=== PATIENT | male | born 1975 | race Caucasian/White ===

== ENCOUNTER → 2022-11-13 15:29 | Outpatient (CLI) | payer BC, SELFPAY ==
[2022-11-13 16:21] LABS: COVID19 -Nasal RAPID Negative (Negative)
== END ==
PROVIDERS: Visit Provider Surgery
DX: Z01.812 Encounter for preprocedural laboratory examination (principal); Z20.822 Contact with and (suspected) exposure to COVID-19
CPT/HCPCS: 87635; C9803

== ENCOUNTER 2022-11-14 07:49 | Day surgery (SDC) | payer BC, SELFPAY ==
--- NOTE | 2022-11-14 | PATH_ITS ---
[facility] Accession Number: [id number] No. of containers..01 Tissue . 01 Material submitted: . colon - CECAL POLYP . 01 Diagnosis: Cecum, Polyps, Biopsies: Tubular adenomas. MRV 11/20/2022 1150 Local . 01 Electronically signed: . Neyda Gray MD, Pathologist NPI- [id number] . 01 Gross description: . CECAL POLYP: Received in formalin are multiple fragment(s) of gleason, soft tissue measuring 1.5 x 0.7 x 0.1 cm in aggregate submitted entirely in 1 cassette(s) /CPE 11/15/2022 0846 Local . 01 Pathologist provided ICD-10: D12.0 . 01 CPT . 811473 Performed at: 01 [facility] [address] [place] [address], [place], [place] [id number] MD Frederick Martinez MD Phone: [phone]
[2022-11-14 08:45] VITALS: BP 139/81; PULSE 90; RESP 16; TEMP 36.3; O2SAT 98; BMI 30.5
[2022-11-14] MEDS: LACTATED RINGERS 1,000 ML 84 ML IV (09:03)
--- NOTE | 2022-11-14 09:19 | PM.HP.1 ---
History of Present Illness History of Present Illness Date Patient Seen: 11/14/22 Time Patient Seen: 09:19 Chief complaint: SDC Narrative: Madhu is a 47-year-old man who is here for colonoscopy. He has never had 1 before. He has no known family history of colon cancer. Both his parents have had polyps removed on colonoscopies before. Patient History Family & Social History Social History: household members spouse Tobacco & Substance use: Smoking Status Never smoker alcohol intake current alcohol intake frequency a few times a week Substance Use Type does not use Meds Home Medications and Allergies Home Medications Medication Instructions Recorded Confirmed Type sodium sul 1.479 gram-potas ch See Rx Instructions PO PER PKG DIR 11/06/22 11/14/22 Rx 0.188 gram-magnes sul 0.225 gram #24 tabs tablet (Sutab) testosterone cypionate 200 mg/mL 100 mg IM 11/14/22 History intramuscular oil (Depo-Testosterone) Allergies Allergy/AdvReac Type Severity Reaction Status Date / Time No Known Drug Allergies Allergy Verified 11/14/22 08:44 Exam Vital Signs (past 8 hours): - 11/14/22 08:45 Temperature 97.4 F L Pulse Rate 90 Respiratory Rate 16 Blood Pressure 139/81 Pulse Oximetry 98 Oxygen Delivery Method Room Air Oxygen Delivery Method Room Air Const General: No acute distress Resp Effort & Inspection: normal respiratory effort Assessment & Plan Assessment and plan (1) Colon cancer screening: Status: Acute Plan Risks and benefits of colonoscopy reviewed and he would like to proceed. Time Spent With Patient Critical Care time: I spent a total of [] minutes of critical care time on this patient's care today; this time is exclusive of procedural time.
[2022-11-14 10:31] VITALS: BP 101/62; PULSE 98; RESP 20; TEMP 36.3; O2SAT 90
--- NOTE | 2022-11-14 10:31 | PM.OP.COLON ---
Operative Date/Time/Diagnoses Date of procedure: 11/14/22 Time of procedure: 10:31 Pre-op diagnosis: Colon cancer screening Post-op diagnosis: same Procedure & Clinicians Study performed: Colonoscopy Same procedure as scheduled: Yes Surgeon: Osman Garcia Procedure Notes Procedure in detail: Surgeon: Osman Garcia MD Anesthesia: Dr. Cerda Procedure: The patient was brought to the endoscopy suite, placed in left lateral decubitus position. The patient was connected to monitoring devices. A time-out was performed. Sedation was administered. Once the patient was adequately sedated, a digital rectal exam was performed and was normal. The scope was then inserted and advanced to the cecum where the appendiceal orifice was identified and photographed. The scope was then slowly withdrawn over greater than 6 minutes. The mucosa was thoroughly inspected. There were 2 polyps in the cecum. One was approximately 1 cm and was removed with 2 passes of the cold snare. There was also a 5 mm polyp in the cecum removed with cold snare. The scope was retroflexed in the rectum. No other abnormalities were seen. The scope was straightened and removed. The patient was awakened and brought to recovery. Scope withdrawal time: 14 minutes Sedation time: 22 minutes EBL: 5 mL Findings: 1 cm polyp in the cecum and 5 mm polyp in the cecum Post-procedure Disposition: PACU
[2022-11-14 10:36] VITALS: BP 124/57; PULSE 90; RESP 18; O2SAT 96
[2022-11-14 10:41] VITALS: BP 113/62; PULSE 94; RESP 14; TEMP 36.4; O2SAT 97
[2022-11-14 10:53] VITALS: BP 128/65; PULSE 91; RESP 16; O2SAT 96
== END 2022-11-14 11:10 | disposition home or self-care (01) ==
PROVIDERS: Referring Provider Surgery; Visit Provider Surgery
PROC: 0DJD8ZZ Inspection of Lower Intestinal Tract, Via Natural or Artificial Opening Endoscopic (ICD-10-PCS; CPT 45378; principal; 2022-11-14 09:15)
DX: Z12.11 Encounter for screening for malignant neoplasm of colon (principal); D12.0 Benign neoplasm of cecum
CPT/HCPCS: 45380; J2250; J2704; J3010

== ENCOUNTER → 2023-01-13 15:39 | Outpatient (CLI) | payer OTHER, SELFPAY ==
--- NOTE | 2023-01-13 15:42 | DI.RAD.S_ITS ---
PROCEDURE: XR KNEE RT 3V INDICATIONS: right knee strain TECHNIQUE: 3 views of the knee were acquired. COMPARISON: None. FINDINGS: Bones: No fractures or dislocations. No suspicious bony lesions. Soft tissues: Small joint effusion. No suspicious soft tissue calcifications. IMPRESSION: Small knee joint effusion; otherwise no definite radiographic abnormality. If pain persists with conservative management, consider cross sectional imaging such as CT or MRI for further assessment. Dictated by: Andriy Meza RR Interpreted: Yamil Aguilera MD on 01/13/2023 at 16:02 Transcribed by: ADAM on 01/13/2023 at 16:02 Approved by: Zachery Aguilera M.D. on 01/13/2023 at 16:51
== END ==
PROVIDERS: Referring Provider Nurse Practitioner Family; Visit Provider Nurse Practitioner Family
DX: M25.461 Effusion, right knee (principal); S86.911A Strain of unspecified muscle(s) and tendon(s) at lower leg level, right leg, initial encounter
CPT/HCPCS: 73562

== ENCOUNTER → 2023-02-17 12:12 | Outpatient (CLI) | payer OTHER, SELFPAY ==
--- NOTE | 2023-02-17 | DI.MRI.S_ITS ---
PROCEDURE: MR KNEE RT WO CON INDICATIONS: strain of right knee TECHNIQUE: Noncontrast sagittal PD fast spin echo and T2 fast spin echo with fat saturation, sagittal 3-D FLASH with fat saturation; coronal T1 spin echo and PD fast spin echo with fat saturation, and axial PD fast spin echo with fat saturation through the knee. COMPARISON: None. FINDINGS: Image quality: Excellent. Menisci: Oblique tear involving posterior horn of medial meniscus is seen extending to inferior articulating surface. There is no lateral meniscal tear. The meniscal root ligaments appear intact. Lobulated cystic structure is seen posterior to the posterior cruciate ligament and may represent Lucy meniscal cyst. Cruciate ligaments: The anterior and posterior cruciate ligaments appear intact. Medial structures: The medial collateral ligament appears intact. The posterior oblique ligament, semimembranosus tendon insertions, oblique popliteal ligament, and meniscocapsular junction appear intact. Visualized portions of the pes anserinus tendons appear normal. No abnormal bursal fluid. Lateral structures: The lateral collateral ligament, long and short heads of the biceps femoris tendon appear intact. The popliteus tendon appears normal; the popliteofibular ligament appears intact. Iliotibial band appears normal. Anterior structures: The quadriceps and patellar tendons appear intact. Patellar alignment is normal. No femoral trochlear dysplasia or ventral trochlear prominence. No edema in the infrapatellar fat pad. Bones and cartilage: No bone marrow contusions or fractures. Mild medial femoral tibial compartment joint space narrowing and low-grade chondromalacia is seen. Joint space: There is physiologic knee joint fluid. No Muniz's cyst. Normal appearing synovial plicae are incidentally noted. IMPRESSION: 1. Oblique tear involving body/posterior horn of medial meniscus extending to inferior articulating surface with suggestion of lobulated parameniscal cyst adjacent to posterior medial malleolus/posterior cruciate ligament. No evidence of focal lateral meniscal tear. 2. Cruciate ligaments are intact. 3. 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 No fracture or dislocation. No significant joint effusion. Dictated by: Trevor Snow M.D. on 02/17/2023 at 13:25 Approved by: Trevor Snow M.D. on 02/17/2023 at 13:36
== END ==
PROVIDERS: Family Provider Family Medicine; PCP Family Medicine; Referring Provider Orthopaedic Surgery; Visit Provider Orthopaedic Surgery
DX: S83.241A Other tear of medial meniscus, current injury, right knee, initial encounter (principal); S86.911A Strain of unspecified muscle(s) and tendon(s) at lower leg level, right leg, initial encounter; M17.11 Unilateral primary osteoarthritis, right knee; M94.261 Chondromalacia, right knee; X58.XXXA Exposure to other specified factors, initial encounter
CPT/HCPCS: 73721

== ENCOUNTER 2023-04-07 15:45 | Outpatient (RCR) | payer BC, SELFPAY ==
--- NOTE | 2023-01-27 17:28 | PT.OIE ---
Current Diagnoses Pain in right knee (01/27/23) Strain of unspecified muscle(s) and tendon(s) at lower leg level, right leg, initial encounter (01/27/23) Strain of unspecified muscle(s) and tendon(s) at lower leg level, right leg, subsequent encounter (01/27/23) Visit Care Team Role Provider Type Kishor Hunter MD Family Provider Non-Staff Primary Care Provider Specialty: Family Practice Address: [address] [place] [address] [address], [place], [address] Email: DICKSON Mixon Attending Provider Advanced Security Patrol Driver Referring Provider Specialty: [facility] Practice Address: [address] [facility], [facility] [place], [address] Phone: Fax: Email: [email or web address] Initial Evaluation PT-OP-A Visit Information Start: 01/27/23 10:30 Freq: Status: Active Protocol: Document 01/27/23 09:45 DCW (Rec: 01/27/23 17:27 [facility] [id number]) Out-Patient Physical Therapy Visit Information Visit Information Visit Type Initial Evaluation Visit Start Time 09:45 Visit Stop Time 10:30 Total Visit Minutes 45 Visit Number 1 Number of APPRISE COUNSELOR Visits 0 Evaluation Information Evaluation Date 01/27/23 PT-OP-B Current Condition Start: 01/27/23 10:30 Freq: Status: Active Protocol: Document 01/27/23 09:45 DCW (Rec: 01/27/23 17:27 [facility] [id number]) Current Condition History of Current Condition Onset Date 01/03/23 Current Complaints R knee pain History of Current Condition Pt is a 47 year old male presenting with a 3+ week history of right knee pain. Pt reports he was out jogging in an attempt to get ready for a work-related fitness test, when he stepped off a curb, rolled his ankle, and felt a twisting/grinding in his right knee. Notes that he has a prior meniscus tear and surgical repair in his left knee in 2012, and this GARY was a lot like his last one, so he has been concerned about his meniscus. Pt notes very point-specific pain at the Pes Anserine. Has not been lifting weights or running, trying to rest, ice, and elevate to decrease swelling. Notes his knee still aches pretty frequently, especially when up walking for extended periods of time. Does have an appointment with an Ortho scheduled for tomorrow, pt is hoping that he gets an MRI from the Ortho. Prior Treatments and Tests 2012 - Left meniscus tear, partial menisectomy. Treatment Goals Patient/Caregiver Goals Return to work, ability to complete running portion of fitness test (1.5 miles). PT-OP-C Subjective Start: 01/27/23 10:30 Freq: Status: Active Protocol: Document 01/27/23 09:45 DCW (Rec: 01/27/23 17:27 DCW [id number]) OP-PT Subjective Patient Comments Patient Comments I was told when they did my left knee that I'd need a replacement eventually. I'm hoping to put it off until I retire, which should be next year. Patient Reported Progress Improving Patient Questionnaires Lower Extremity Functional Scale LEFS Score 72.5% LEFS Impairment 20 to 39% Impaired (Score 48- 62) PT-OP-F Manual Assessment Start: 01/27/23 10:30 Freq: Status: Active Protocol: Document 01/27/23 09:45 DCW (Rec: 01/27/23 17:27 DCW [id number]) Manual Assessments Other Manual Assessments Other Manual Assessments Point-specific pain; tenderness to palpation 3/4: wincing and withdraw at R Pes Anserine. Tenderness to palpation 1/4: Complaint of pain at R MCL PT-OP-K Range of Motion Start: 01/27/23 10:30 Freq: Status: Active Protocol: Document 01/27/23 09:45 DCW (Rec: 01/27/23 17:27 DCW [id number]) Knee Goniometric Range of Motion Knee Right Knee ROM WFL Yes Patient Position Supine Flexion Active (degrees) 130 Extension Active (degrees) 0 PT-OP-L Special Tests Start: 01/27/23 10:30 Freq: Status: Active Protocol: Document 01/27/23 09:45 DCW (Rec: 01/27/23 17:27 DCW [id number]) Special Tests Knee Special Tests Varus- 0 Degrees Test Results Pain at R Pes Anserine Valgus- 0 Degrees Test Results Negative Posterior Draw Test Results Negative Patella Tap Test Results Positive R Jeannette Test Test Results Pain at R Pes Anserine Apley's Compression Test Results Negative Anterior Draw Test Results Negative PT-OP-M Strength Start: 01/27/23 10:30 Freq: Status: Active Protocol: Document 01/27/23 09:45 DCW (Rec: 01/27/23 17:27 DCW [id number]) Knee Strength Knee Manual Muscle Testing Right Flexion (S2) 5 Normal Extension (L3) 4 Good Left Flexion (S2) 5 Normal Extension (L3) 5 Normal PT-OP-T Assessment and Plan Start: 01/27/23 10:30 Freq: Status: Active Protocol: Document 01/27/23 09:45 DCW (Rec: 01/27/23 17:27 DCW [id number]) Physical Therapy Assessment Rehab Potential Rehabilitation Potential Good Evaluation Complexity Number of Personal Factors/Comorbidities 1-2 Number of Body Systems Impaired 1-2 Clinical Presentation at Evaluation Stable Impairments Impairments Activity Tolerance,Functional Activities,Functional Mobility ,Pain,ROM,Soft Tissue Mobility ,Tone Goals Two Impairment Pt unable to currently run due to increased right knee pain Skilled Nursing Goal (LTG) Pt to demonstrate ability to jog at least 1.5 miles, in order to pass in work fitness test. LTG Duration 03/29/23 One Impairment Pt does not have an appropriate home exercise program Short Term Goal (STG) Pt to be independent and compliant with an appropriate HEP STG Duration 02/26/23 Assessment Summary Assessment Pt presents with signs and symptoms consistent with potential Pes Anserine tendonitis. Pt is very point- specific, likely initially caused be a sharp twist of his knee when his rolled his ankle, and has since just become more inflamed. Pt is already doing a lot to help with decreasing swelling and inflammation, but struggling with return to normal exercise . Pt has an upcoming fitness test for work, during which he must run 1.5 miles, and is anxious to get back to training so he can complete this test. Pt should benefit from skilled therapy focusing on STM, decreasing inflammation, joint mobility, strengthening, and pain control. Physical Therapy Plan Frequency and Duration Frequency of Treatment 2x/Week Plan of Care Start Date 01/27/23 Plan of Care End Date 03/29/23 Therapeutic Interventions Therapeutic Interventions Home Exercise Program,Joint Mobilizations,Manual Therapy, Neuromuscular Re-education, Patient/Caregiver Education, Self-Care/Home Management,Soft Tissue Mobilization, Therapeutic Activities, Therapeutic Exercises Modalities Infrared Therapy,Ultrasound Next Visit Focus/Plan Next Note Type Treatment Note Next Visit Plan STM, stretching, k-tape/ modalities for pain and inflammation, strengthening
--- NOTE | 2023-01-27 17:28 | PT.OPPOC ---
Physical, Occupational & Speech Therapy At [facility] Current Diagnoses Pain in right knee (01/27/23) Strain of unspecified muscle(s) and tendon(s) at lower leg level, right leg, initial encounter (01/27/23) Strain of unspecified muscle(s) and tendon(s) at lower leg level, right leg, subsequent encounter (01/27/23) Visit Care Team Role Provider Type Kishor Hunter MD Family Provider Non-Staff Primary Care Provider Specialty: Family Practice Address: [address] [place] [address] [address], [address] Email: DICKSON Mixon Attending Provider Advanced Electric Switch Tester Referring Provider Specialty: Family Practice Address: [facility], [facility], [place], [address] Phone: Fax: Email: [email or web address] Plan Of Care PT-OP-T Assessment and Plan Start: 01/27/23 10:30 Freq: Status: Active Protocol: Document 01/27/23 09:45 DCW (Rec: 01/27/23 17:27 DCW [id number]) Physical Therapy Assessment Rehab Potential Rehabilitation Potential Good Evaluation Complexity Number of Personal Factors/Comorbidities 1-2 Number of Body Systems Impaired 1-2 Clinical Presentation at Evaluation Stable Impairments Impairments Activity Tolerance,Functional Activities,Functional Mobility ,Pain,ROM,Soft Tissue Mobility ,Tone Goals Two Impairment Pt unable to currently run due to increased right knee pain Detention Goal (LTG) Pt to demonstrate ability to jog at least 1.5 miles, in order to pass in work fitness test. LTG Duration 03/29/23 One Impairment Pt does not have an appropriate home exercise program Short Term Goal (STG) Pt to be independent and compliant with an appropriate HEP STG Duration 02/26/23 Assessment Summary Assessment Pt presents with signs and symptoms consistent with potential Pes Anserine tendonitis. Pt is very point- specific, likely initially caused be a sharp twist of his knee when his rolled his ankle, and has since just become more inflamed. Pt is already doing a lot to help with decreasing swelling and inflammation, but struggling with return to normal exercise . Pt has an upcoming fitness test for work, during which he must run 1.5 miles, and is anxious to get back to training so he can complete this test. Pt should benefit from skilled therapy focusing on STM, decreasing inflammation, joint mobility, strengthening, and pain control. Physical Therapy Plan Frequency and Duration Frequency of Treatment 2x/Week Plan of Care Start Date 01/27/23 Plan of Care End Date 03/29/23 Therapeutic Interventions Therapeutic Interventions Home Exercise Program,Joint Mobilizations,Manual Therapy, Neuromuscular Re-education, Patient/Caregiver Education, Self-Care/Home Management,Soft Tissue Mobilization, Therapeutic Activities, Therapeutic Exercises Modalities Infrared Therapy,Ultrasound Next Visit Focus/Plan Next Note Type Treatment Note Next Visit Plan STM, stretching, k-tape/ modalities for pain and inflammation, strengthening Plan of Care Dates Plan of Care Start Date 01/27/23 Plan of Care End Date 03/29/23 Electronically Signed by: Sukhjinder Lemus, PT 01/27/23 0170 If you are in agreement with this Plan of Care, please return a signed and dated copy. I have reviewed this Plan of Care and certify that the skilled therapy services above are required to meet the patient?s needs. Physician Signature Date Printed Name and Credentials Clinical Instructor Signature Printed Name and Credentials
--- NOTE | 2023-02-21 15:37 | PT-OP ANOTE ---
Pt arrived as scheduled, but following brief discussion, would prefer to wait until he is seen by Ortho on 03/03/23 for review of his MRI prior to working with PT.
--- NOTE | 2023-03-07 16:49 | PT.OTN ---
Current Diagnoses Pain in right knee (03/07/23) Strain of unspecified muscle(s) and tendon(s) at lower leg level, right leg, initial encounter (03/07/23) Strain of unspecified muscle(s) and tendon(s) at lower leg level, right leg, subsequent encounter (03/07/23) Physical Therapy Treatment Note PT-OP-A Visit Information Start: 01/27/23 10:30 Freq: Status: Active Protocol: Document 03/07/23 16:00 DCW (Rec: 03/07/23 16:48 DCW [id number]) Out-Patient Physical Therapy Visit Information Visit Information Visit Type Treatment Note Visit Start Time 16:00 Visit Stop Time 16:45 Total Visit Minutes 45 Visit Number 2 Number of CASH ACCOUNTING CLERK Visits 0 Evaluation Information Evaluation Date 01/27/23 PT-OP-B Current Condition Start: 01/27/23 10:30 Freq: Status: Active Protocol: Document 01/27/23 09:45 DCW (Rec: 01/27/23 17:27 DCW [id number]) Current Condition History of Current Condition Onset Date 01/03/23 Current Complaints R knee pain History of Current Condition Pt is a 47 year old male presenting with a 3+ week history of right knee pain. Pt reports he was out jogging in an attempt to get ready for a work-related fitness test, when he stepped off a curb, rolled his ankle, and felt a twisting/grinding in his right knee. Notes that he has a prior meniscus tear and surgical repair in his left knee in 2012, and this GARY was a lot like his last one, so he has been concerned about his meniscus. Pt notes very point-specific pain at the Pes Anserine. Has not been lifting weights or running, trying to rest, ice, and elevate to decrease swelling. Notes his knee still aches pretty frequently, especially when up walking for extended periods of time. Does have an appointment with an Ortho scheduled for tomorrow, pt is hoping that he gets an MRI from the Ortho. Prior Treatments and Tests 2012 - Left meniscus tear, partial menisectomy. Treatment Goals Patient/Caregiver Goals Return to work, ability to complete running portion of fitness test (1.5 miles). PT-OP-C Subjective Start: 01/27/23 10:30 Freq: Status: Active Protocol: Document 03/07/23 16:00 DCW (Rec: 03/07/23 16:48 DCW [id number]) OP-PT Subjective Patient Comments Patient Comments Pt reports he has seen ortho, recommended 6 weeks of PT for now. PT-OP-F Manual Assessment Start: 01/27/23 10:30 Freq: Status: Active Protocol: Document 01/27/23 09:45 DCW (Rec: 01/27/23 17:27 DCW [id number]) Manual Assessments Other Manual Assessments Other Manual Assessments Point-specific pain; tenderness to palpation 3/4: wincing and withdraw at R Pes Anserine. Tenderness to palpation 1/4: Complaint of pain at R MCL PT-OP-K Range of Motion Start: 01/27/23 10:30 Freq: Status: Active Protocol: Document 01/27/23 09:45 DCW (Rec: 01/27/23 17:27 DCW [id number]) Knee Goniometric Range of Motion Knee Right Knee ROM WFL Yes Patient Position Supine Flexion Active (degrees) 130 Extension Active (degrees) 0 PT-OP-L Special Tests Start: 01/27/23 10:30 Freq: Status: Active Protocol: Document 01/27/23 09:45 DCW (Rec: 01/27/23 17:27 DCW [id number]) Special Tests Knee Special Tests Varus- 0 Degrees Test Results Pain at R Pes Anserine Valgus- 0 Degrees Test Results Negative Posterior Draw Test Results Negative Patella Tap Test Results Positive R Jeannette Test Test Results Pain at R Pes Anserine Apley's Compression Test Results Negative Anterior Draw Test Results Negative PT-OP-M Strength Start: 01/27/23 10:30 Freq: Status: Active Protocol: Document 01/27/23 09:45 DCW (Rec: 01/27/23 17:27 DCW [id number]) Knee Strength Knee Manual Muscle Testing Right Flexion (S2) 5 Normal Extension (L3) 4 Good Left Flexion (S2) 5 Normal Extension (L3) 5 Normal PT-OP-Q Treatments Start: 01/27/23 10:30 Freq: Status: Active Protocol: Document 03/07/23 16:00 DCW (Rec: 03/07/23 16:48 DCW [id number]) Gym Equipment Shuttle Recovery Plyometric hopping Resistance 62# Unilateral Squats Resistance 87# Shuttle Balance Red Comments WBOS Staggered (Stabilization, Weight shift) Lateral weight Shift Therapeutic Ball Bridging Exercise Details Bridging /c HS curl Ball Size/Color Red - 55 cm Sport Cord Squat Exercise Details Squat with 4-way SC pull Cord/Resistance Blue Therapeutic Exercises Standing Exercises Step-ups Standing Exercise Name Step-ups Side bilateral Equipment Used 16 step Other Exercises Resisted Ambulation Other Exercise Name Side-stepping, Forward/ Backward Resistance Blue loop BOSU Lunge Other Exercise Name BOSU Lunge Side bilateral PT-OP-T Assessment and Plan Start: 01/27/23 10:30 Freq: Status: Active Protocol: Document 03/07/23 16:00 DCW (Rec: 03/07/23 16:48 DCW [id number]) Physical Therapy Assessment Impairments Impairments Activity Tolerance,Functional Activities,Functional Mobility ,Pain,ROM,Soft Tissue Mobility ,Tone Goals Two Impairment Pt unable to currently run due to increased right knee pain Nursing Home Goal (LTG) Pt to demonstrate ability to jog at least 1.5 miles, in order to pass in work fitness test. LTG Duration 03/29/23 One Impairment Pt does not have an appropriate home exercise program Short Term Goal (STG) Pt to be independent and compliant with an appropriate HEP STG Duration 02/26/23 Assessment Summary Assessment Pt did very well with new challenges, was able to participate in difficult activities with minimal knee pain. Pt noted that his left leg felt even more problematic than his right when doing most stabilization and balance activities. Should benefit from continued PT focusing on improved strength and stabilization. Physical Therapy Plan Frequency and Duration Frequency of Treatment 2x/Week Plan of Care Start Date 01/27/23 Plan of Care End Date 03/29/23 Therapeutic Interventions Therapeutic Interventions Home Exercise Program,Joint Mobilizations,Manual Therapy, Neuromuscular Re-education, Patient/Caregiver Education, Self-Care/Home Management,Soft Tissue Mobilization, Therapeutic Activities, Therapeutic Exercises Modalities Infrared Therapy,Ultrasound Next Visit Focus/Plan Next Note Type Treatment Note Next Visit Plan STM, stretching, k-tape/ modalities for pain and inflammation, strengthening
--- NOTE | 2023-03-14 16:49 | PT.OTN ---
Current Diagnoses Pain in right knee (03/14/23) Strain of unspecified muscle(s) and tendon(s) at lower leg level, right leg, initial encounter (03/14/23) Strain of unspecified muscle(s) and tendon(s) at lower leg level, right leg, subsequent encounter (03/14/23) Physical Therapy Treatment Note PT-OP-A Visit Information Start: 01/27/23 10:30 Freq: Status: Active Protocol: Document 03/14/23 16:00 DCW (Rec: 03/14/23 16:49 DCW [id number]) Out-Patient Physical Therapy Visit Information Visit Information Visit Type Treatment Note Visit Start Time 16:00 Visit Stop Time 16:45 Total Visit Minutes 45 Visit Number 3 Number of HOTEL OR MOTEL CLEANING SUPERVISOR Visits 0 Evaluation Information Evaluation Date 01/27/23 PT-OP-B Current Condition Start: 01/27/23 10:30 Freq: Status: Active Protocol: Document 01/27/23 09:45 DCW (Rec: 01/27/23 17:27 DCW [id number]) Current Condition History of Current Condition Onset Date 01/03/23 Current Complaints R knee pain History of Current Condition Pt is a 47 year old male presenting with a 3+ week history of right knee pain. Pt reports he was out jogging in an attempt to get ready for a work-related fitness test, when he stepped off a curb, rolled his ankle, and felt a twisting/grinding in his right knee. Notes that he has a prior meniscus tear and surgical repair in his left knee in 2012, and this GARY was a lot like his last one, so he has been concerned about his meniscus. Pt notes very point-specific pain at the Pes Anserine. Has not been lifting weights or running, trying to rest, ice, and elevate to decrease swelling. Notes his knee still aches pretty frequently, especially when up walking for extended periods of time. Does have an appointment with an Ortho scheduled for tomorrow, pt is hoping that he gets an MRI from the Ortho. Prior Treatments and Tests 2012 - Left meniscus tear, partial menisectomy. Treatment Goals Patient/Caregiver Goals Return to work, ability to complete running portion of fitness test (1.5 miles). PT-OP-C Subjective Start: 01/27/23 10:30 Freq: Status: Active Protocol: Document 03/14/23 16:00 DCW (Rec: 03/14/23 16:49 DCW [id number]) OP-PT Subjective Patient Comments Patient Comments Pt reports his knee has been pretty sore ever since his last PT appointment, more of a lingering discomfort than actual pain. PT-OP-F Manual Assessment Start: 01/27/23 10:30 Freq: Status: Active Protocol: Document 01/27/23 09:45 DCW (Rec: 01/27/23 17:27 DCW [id number]) Manual Assessments Other Manual Assessments Other Manual Assessments Point-specific pain; tenderness to palpation 3/4: wincing and withdraw at R Pes Anserine. Tenderness to palpation 1/4: Complaint of pain at R MCL PT-OP-K Range of Motion Start: 01/27/23 10:30 Freq: Status: Active Protocol: Document 01/27/23 09:45 DCW (Rec: 01/27/23 17:27 DCW [id number]) Knee Goniometric Range of Motion Knee Right Knee ROM WFL Yes Patient Position Supine Flexion Active (degrees) 130 Extension Active (degrees) 0 PT-OP-L Special Tests Start: 01/27/23 10:30 Freq: Status: Active Protocol: Document 01/27/23 09:45 DCW (Rec: 01/27/23 17:27 DCW [id number]) Special Tests Knee Special Tests Varus- 0 Degrees Test Results Pain at R Pes Anserine Valgus- 0 Degrees Test Results Negative Posterior Draw Test Results Negative Patella Tap Test Results Positive R Jeannette Test Test Results Pain at R Pes Anserine Apley's Compression Test Results Negative Anterior Draw Test Results Negative PT-OP-M Strength Start: 01/27/23 10:30 Freq: Status: Active Protocol: Document 01/27/23 09:45 DCW (Rec: 01/27/23 17:27 DCW [id number]) Knee Strength Knee Manual Muscle Testing Right Flexion (S2) 5 Normal Extension (L3) 4 Good Left Flexion (S2) 5 Normal Extension (L3) 5 Normal PT-OP-Q Treatments Start: 01/27/23 10:30 Freq: Status: Active Protocol: Document 03/14/23 16:00 DCW (Rec: 03/14/23 16:49 DCW [id number]) Cardio Equipment Other Cardio Equipment Other Cardio Equipment Fitter: Middle and Thickes band VCs to keep body weight over outside knee Gym Equipment Shuttle Balance Red Comments WBOS Staggered (Stabilization, Weight shift) Lateral weight Shift (stopped d/t pain) Therapeutic Exercises Standing Exercises TKE Standing Exercise Name TKE Side bilateral Resistance Blue Step-ups Standing Exercise Name Step-ups/Downs Side bilateral Equipment Used 6 step Other Exercises BOSU stance Other Exercise Name BOSU single leg stance Side bilateral BOSU Lunge Other Exercise Name BOSU Lunge Side bilateral Manual Therapy Treatment Taping Right knee Body Location 2 Y-strips sup<->inf patella Type of Tape Kinesio Tape PT-OP-T Assessment and Plan Start: 01/27/23 10:30 Freq: Status: Active Protocol: Document 03/14/23 16:00 DCW (Rec: 03/14/23 16:49 DCW [id number]) Physical Therapy Assessment Impairments Impairments Activity Tolerance,Functional Activities,Functional Mobility ,Pain,ROM,Soft Tissue Mobility ,Tone Goals Two Impairment Pt unable to currently run due to increased right knee pain Ear Muff Assembler Goal (LTG) Pt to demonstrate ability to jog at least 1.5 miles, in order to pass in work fitness test. LTG Duration 03/29/23 One Impairment Pt does not have an appropriate home exercise program Short Term Goal (STG) Pt to be independent and compliant with an appropriate HEP STG Duration 02/26/23 Assessment Summary Assessment Attempted to take it easier today after pt had sustained soreness following last treatment session, admitted his knees were angry after today's session, but felt like it was a good workout. Physical Therapy Plan Frequency and Duration Frequency of Treatment 2x/Week Plan of Care Start Date 01/27/23 Plan of Care End Date 03/29/23 Therapeutic Interventions Therapeutic Interventions Home Exercise Program,Joint Mobilizations,Manual Therapy, Neuromuscular Re-education, Patient/Caregiver Education, Self-Care/Home Management,Soft Tissue Mobilization, Therapeutic Activities, Therapeutic Exercises Modalities Infrared Therapy,Ultrasound Next Visit Focus/Plan Next Note Type Treatment Note Next Visit Plan STM, stretching, k-tape/ modalities for pain and inflammation, strengthening
--- NOTE | 2023-03-18 16:32 | PT.OTN ---
Current Diagnoses Pain in right knee (03/18/23) Strain of unspecified muscle(s) and tendon(s) at lower leg level, right leg, initial encounter (03/18/23) Strain of unspecified muscle(s) and tendon(s) at lower leg level, right leg, subsequent encounter (03/18/23) Physical Therapy Treatment Note PT-OP-A Visit Information Start: 01/27/23 10:30 Freq: Status: Active Protocol: Document 03/18/23 15:50 DCW (Rec: 03/18/23 16:32 DCW [id number]) Out-Patient Physical Therapy Visit Information Visit Information Visit Type Treatment Note Visit Start Time 15:50 Visit Stop Time 16:30 Total Visit Minutes 40 Visit Number 4 Number of SCHOOL CHILD CARE ATTENDANT Visits 0 Evaluation Information Evaluation Date 01/27/23 PT-OP-B Current Condition Start: 01/27/23 10:30 Freq: Status: Active Protocol: Document 01/27/23 09:45 DCW (Rec: 01/27/23 17:27 DCW [id number]) Current Condition History of Current Condition Onset Date 01/03/23 Current Complaints R knee pain History of Current Condition Pt is a 47 year old male presenting with a 3+ week history of right knee pain. Pt reports he was out jogging in an attempt to get ready for a work-related fitness test, when he stepped off a curb, rolled his ankle, and felt a twisting/grinding in his right knee. Notes that he has a prior meniscus tear and surgical repair in his left knee in 2012, and this GARY was a lot like his last one, so he has been concerned about his meniscus. Pt notes very point-specific pain at the Pes Anserine. Has not been lifting weights or running, trying to rest, ice, and elevate to decrease swelling. Notes his knee still aches pretty frequently, especially when up walking for extended periods of time. Does have an appointment with an Ortho scheduled for tomorrow, pt is hoping that he gets an MRI from the Ortho. Prior Treatments and Tests 2012 - Left meniscus tear, partial menisectomy. Treatment Goals Patient/Caregiver Goals Return to work, ability to complete running portion of fitness test (1.5 miles). PT-OP-C Subjective Start: 01/27/23 10:30 Freq: Status: Active Protocol: Document 03/18/23 15:50 DCW (Rec: 03/18/23 16:32 DCW [id number]) OP-PT Subjective Patient Comments Patient Comments I made the mistake of letting my kids talk me into going on a trail walk, and I'm a little sore still from that. PT-OP-F Manual Assessment Start: 01/27/23 10:30 Freq: Status: Active Protocol: Document 01/27/23 09:45 DCW (Rec: 01/27/23 17:27 DCW [id number]) Manual Assessments Other Manual Assessments Other Manual Assessments Point-specific pain; tenderness to palpation 3/4: wincing and withdraw at R Pes Anserine. Tenderness to palpation 1/4: Complaint of pain at R MCL PT-OP-K Range of Motion Start: 01/27/23 10:30 Freq: Status: Active Protocol: Document 01/27/23 09:45 DCW (Rec: 01/27/23 17:27 DCW [id number]) Knee Goniometric Range of Motion Knee Right Knee ROM WFL Yes Patient Position Supine Flexion Active (degrees) 130 Extension Active (degrees) 0 PT-OP-L Special Tests Start: 01/27/23 10:30 Freq: Status: Active Protocol: Document 01/27/23 09:45 DCW (Rec: 01/27/23 17:27 DCW [id number]) Special Tests Knee Special Tests Varus- 0 Degrees Test Results Pain at R Pes Anserine Valgus- 0 Degrees Test Results Negative Posterior Draw Test Results Negative Patella Tap Test Results Positive R Jeannette Test Test Results Pain at R Pes Anserine Apley's Compression Test Results Negative Anterior Draw Test Results Negative PT-OP-M Strength Start: 01/27/23 10:30 Freq: Status: Active Protocol: Document 01/27/23 09:45 DCW (Rec: 01/27/23 17:27 DCW [id number]) Knee Strength Knee Manual Muscle Testing Right Flexion (S2) 5 Normal Extension (L3) 4 Good Left Flexion (S2) 5 Normal Extension (L3) 5 Normal PT-OP-Q Treatments Start: 01/27/23 10:30 Freq: Status: Active Protocol: Document 03/18/23 15:50 DCW (Rec: 03/18/23 16:32 DCW [id number]) Gym Equipment Shuttle Balance Red Comments WBOS Staggered (Stabilization, Weight shift) Lateral weight Shift (stopped d/t pain) Therapeutic Exercises Standing Exercises Step-ups Standing Exercise Name Step-ups/Downs Side bilateral Equipment Used 6 step Other Exercises SLS Other Exercise Name SLS on Foam, Balloon volleyball Side bilateral Star Stepping Other Exercise Name Star stepping Side bilateral BOSU stance Other Exercise Name BOSU single leg stance Side bilateral BOSU Lunge Other Exercise Name BOSU Lunge Side bilateral PT-OP-T Assessment and Plan Start: 01/27/23 10:30 Freq: Status: Active Protocol: Document 03/18/23 15:50 DCW (Rec: 03/18/23 16:32 DCW [id number]) Physical Therapy Assessment Impairments Impairments Activity Tolerance,Functional Activities,Functional Mobility ,Pain,ROM,Soft Tissue Mobility ,Tone Goals Two Impairment Pt unable to currently run due to increased right knee pain Regional Vice President Surgical Sales Goal (LTG) Pt to demonstrate ability to jog at least 1.5 miles, in order to pass in work fitness test. LTG Duration 04/07/23 One Impairment Pt does not have an appropriate home exercise program Short Term Goal (STG) Pt to be independent and compliant with an appropriate HEP STG Duration 02/26/23 Assessment Summary Assessment Still very tender overall with all LE challenges, does not appear to be responding very well to rehab. Upcoming short break from PT due to scheduling challenges, will see how he does after lay-off, may be approaching recommended return to PCP or ortho Physical Therapy Plan Frequency and Duration Frequency of Treatment 1x/Week Plan of Care Start Date 03/18/23 Plan of Care End Date 04/07/23 Therapeutic Interventions Therapeutic Interventions Home Exercise Program,Joint Mobilizations,Manual Therapy, Neuromuscular Re-education, Patient/Caregiver Education, Self-Care/Home Management,Soft Tissue Mobilization, Therapeutic Activities, Therapeutic Exercises Modalities Infrared Therapy,Ultrasound Next Visit Focus/Plan Next Note Type Treatment Note Next Visit Plan STM, stretching, k-tape/ modalities for pain and inflammation, strengthening
--- NOTE | 2023-03-18 16:32 | PT.OPPOC ---
Physical, Occupational & Speech Therapy At [facility] Current Diagnoses Pain in right knee (03/18/23) Strain of unspecified muscle(s) and tendon(s) at lower leg level, right leg, initial encounter (03/18/23) Strain of unspecified muscle(s) and tendon(s) at lower leg level, right leg, subsequent encounter (03/18/23) Visit Care Team Role Provider Type Kishor Hunter MD Family Provider Non-Staff Primary Care Provider Specialty: Family Practice Address: [address] [place] [address] [address], [place], [address] Email: DICKSON Mixon Attending Provider Advanced Family Consumer Scientist Referring Provider Specialty: Family Practice Address: [facility], [place], [address] Phone: Fax: Email: [email or web address] Plan Of Care PT-OP-T Assessment and Plan Start: 01/27/23 10:30 Freq: Status: Active Protocol: Document 03/18/23 15:50 DCW (Rec: 03/18/23 16:32 DCW [id number]) Physical Therapy Assessment Impairments Impairments Activity Tolerance,Functional Activities,Functional Mobility ,Pain,ROM,Soft Tissue Mobility ,Tone Goals Two Impairment Pt unable to currently run due to increased right knee pain Puppet Master Goal (LTG) Pt to demonstrate ability to jog at least 1.5 miles, in order to pass in work fitness test. LTG Duration 04/07/23 One Impairment Pt does not have an appropriate home exercise program Short Term Goal (STG) Pt to be independent and compliant with an appropriate HEP STG Duration 02/26/23 Assessment Summary Assessment Still very tender overall with all LE challenges, does not appear to be responding very well to rehab. Upcoming short break from PT due to scheduling challenges, will see how he does after lay-off, may be approaching recommended return to PCP or ortho Physical Therapy Plan Frequency and Duration Frequency of Treatment 1x/Week Plan of Care Start Date 03/18/23 Plan of Care End Date 04/07/23 Therapeutic Interventions Therapeutic Interventions Home Exercise Program,Joint Mobilizations,Manual Therapy, Neuromuscular Re-education, Patient/Caregiver Education, Self-Care/Home Management,Soft Tissue Mobilization, Therapeutic Activities, Therapeutic Exercises Modalities Infrared Therapy,Ultrasound Next Visit Focus/Plan Next Note Type Treatment Note Next Visit Plan STM, stretching, k-tape/ modalities for pain and inflammation, strengthening Plan of Care Dates Plan of Care Start Date 03/18/23 Plan of Care End Date 04/07/23 Electronically Signed by: Sukhjinder Lemus, PT 03/18/23 [id number] If you are in agreement with this Plan of Care, please return a signed and dated copy. I have reviewed this Plan of Care and certify that the skilled therapy services above are required to meet the patient?s needs. Physician Signature Date Printed Name and Credentials Clinical Instructor Signature Printed Name and Credentials
--- NOTE | 2023-04-07 16:16 | PT.OTN ---
Current Diagnoses Pain in right knee (04/07/23) Strain of unspecified muscle(s) and tendon(s) at lower leg level, right leg, initial encounter (04/07/23) Strain of unspecified muscle(s) and tendon(s) at lower leg level, right leg, subsequent encounter (04/07/23) Physical Therapy Treatment Note PT-OP-A Visit Information Start: 01/27/23 10:30 Freq: Status: Active Protocol: Document 04/07/23 15:45 DCW (Rec: 04/07/23 16:16 DCW [id number]) Out-Patient Physical Therapy Visit Information Visit Information Visit Type Discharge Summary Visit Start Time 15:45 Visit Stop Time 16:15 Total Visit Minutes 30 Visit Number 5 Number of BRIM ROUNDER Visits 0 Evaluation Information Evaluation Date 01/27/23 PT-OP-B Current Condition Start: 01/27/23 10:30 Freq: Status: Active Protocol: Document 01/27/23 09:45 DCW (Rec: 01/27/23 17:27 DCW [id number]) Current Condition History of Current Condition Onset Date 01/03/23 Current Complaints R knee pain History of Current Condition Pt is a 47 year old male presenting with a 3+ week history of right knee pain. Pt reports he was out jogging in an attempt to get ready for a work-related fitness test, when he stepped off a curb, rolled his ankle, and felt a twisting/grinding in his right knee. Notes that he has a prior meniscus tear and surgical repair in his left knee in 2012, and this GARY was a lot like his last one, so he has been concerned about his meniscus. Pt notes very point-specific pain at the Pes Anserine. Has not been lifting weights or running, trying to rest, ice, and elevate to decrease swelling. Notes his knee still aches pretty frequently, especially when up walking for extended periods of time. Does have an appointment with an Ortho scheduled for tomorrow, pt is hoping that he gets an MRI from the Ortho. Prior Treatments and Tests 2012 - Left meniscus tear, partial menisectomy. Treatment Goals Patient/Caregiver Goals Return to work, ability to complete running portion of fitness test (1.5 miles). PT-OP-C Subjective Start: 01/27/23 10:30 Freq: Status: Active Protocol: Document 04/07/23 15:45 DCW (Rec: 04/07/23 16:16 DCW [id number]) OP-PT Subjective Patient Comments Patient Comments Pt reports he saw the ortho this morning, decided to have surgery, waiting for approval and will then return to PT following surgical intervention. PT-OP-F Manual Assessment Start: 01/27/23 10:30 Freq: Status: Active Protocol: Document 01/27/23 09:45 DCW (Rec: 01/27/23 17:27 DCW [id number]) Manual Assessments Other Manual Assessments Other Manual Assessments Point-specific pain; tenderness to palpation 3/4: wincing and withdraw at R Pes Anserine. Tenderness to palpation 1/4: Complaint of pain at R MCL PT-OP-K Range of Motion Start: 01/27/23 10:30 Freq: Status: Active Protocol: Document 01/27/23 09:45 DCW (Rec: 01/27/23 17:27 DCW [id number]) Knee Goniometric Range of Motion Knee Right Knee ROM WFL Yes Patient Position Supine Flexion Active (degrees) 130 Extension Active (degrees) 0 PT-OP-L Special Tests Start: 01/27/23 10:30 Freq: Status: Active Protocol: Document 01/27/23 09:45 DCW (Rec: 01/27/23 17:27 DCW [id number]) Special Tests Knee Special Tests Varus- 0 Degrees Test Results Pain at R Pes Anserine Valgus- 0 Degrees Test Results Negative Posterior Draw Test Results Negative Patella Tap Test Results Positive R Jeannette Test Test Results Pain at R Pes Anserine Apley's Compression Test Results Negative Anterior Draw Test Results Negative PT-OP-M Strength Start: 01/27/23 10:30 Freq: Status: Active Protocol: Document 01/27/23 09:45 DCW (Rec: 01/27/23 17:27 DCW [id number]) Knee Strength Knee Manual Muscle Testing Right Flexion (S2) 5 Normal Extension (L3) 4 Good Left Flexion (S2) 5 Normal Extension (L3) 5 Normal PT-OP-Q Treatments Start: 01/27/23 10:30 Freq: Status: Active Protocol: Document 04/07/23 15:45 DCW (Rec: 04/07/23 16:16 DCW [id number]) Cardio Equipment Other Cardio Equipment Other Cardio Equipment Fitter: Middle and Thickest band VCs to keep body weight over outside knee Gym Equipment Shuttle Balance Red Comments WBOS SLS Staggered (Stabilization, Weight shift) Therapeutic Exercises Other Exercises Star Stepping Other Exercise Name Star stepping Side bilateral BOSU stance Other Exercise Name BOSU single leg stance Side bilateral BOSU Lunge Other Exercise Name BOSU Lunge Side bilateral PT-OP-T Assessment and Plan Start: 01/27/23 10:30 Freq: Status: Active Protocol: Document 04/07/23 15:45 DCW (Rec: 04/07/23 16:16 DCW [id number]) Physical Therapy Assessment Impairments Impairments Activity Tolerance,Functional Activities,Functional Mobility ,Pain,ROM,Soft Tissue Mobility ,Tone Goals Two Impairment Pt unable to currently run due to increased right knee pain Detention Goal (LTG) Pt to demonstrate ability to jog at least 1.5 miles, in order to pass in work fitness test. LTG Duration 04/07/23 One Impairment Pt does not have an appropriate home exercise program Short Term Goal (STG) Pt to be independent and compliant with an appropriate HEP STG Duration 02/26/23 Progress Towards Goals Progress Towards Goals Slow Progress due to Medical Issues Assessment Summary Assessment Pt has made minimal progress with conservative treatment, after seeing ortho earlier today is in the process of scheduling surgery. Pt agreeable to discharge from skilled therapy at this time, is planning to return to therapy following surgery. Physical Therapy Plan Frequency and Duration Frequency of Treatment 1x/Week Plan of Care Start Date 03/18/23 Plan of Care End Date 04/07/23 Therapeutic Interventions Therapeutic Interventions Home Exercise Program,Joint Mobilizations,Manual Therapy, Neuromuscular Re-education, Patient/Caregiver Education, Self-Care/Home Management,Soft Tissue Mobilization, Therapeutic Activities, Therapeutic Exercises Modalities Infrared Therapy,Ultrasound Discharge Physical Therapy Discharge Comments Discharge for surgery Next Visit Focus/Plan Next Note Type Discharge Summary
== END 2023-04-09 12:44 | disposition home or self-care (01) ==
LOC: PHYS 15:45
PROVIDERS: Absent Provider Family Medicine; Family Provider Family Medicine; PCP Family Medicine; Referring Provider Nurse Practitioner Family; Visit Provider Nurse Practitioner Family
DX: S86.911D Strain of unspecified muscle(s) and tendon(s) at lower leg level, right leg, subsequent encounter (principal); M25.561 Pain in right knee
CPT/HCPCS: 97110; 97112; 97161